=== PATIENT | male | born 1970 | race Caucasian/White ===

== ENCOUNTER 2024-01-28 07:36 | Day surgery (SDC) | payer OTHER ==
[~2024-01-28] VITALS: Ht 180.3 cm; Wt 93.0 kg
[2024-01-28] MEDS ORDERED: propofoL 50 ML IV ONE (07:37)
[2024-01-28] MEDS ORDERED: Lactated Ringer's 1,000 ML IV ONE ×2 (07:37→08:19)
[2024-01-28] MEDS ORDERED: SILD50TA (07:57)
== END 2024-01-28 09:35 | disposition home or self-care (01) ==
LOC: ORSCSDS 07:36
PROVIDERS: Surgery
PROC: 0DJD8ZZ Inspection of Lower Intestinal Tract, Via Natural or Artificial Opening Endoscopic (ICD-10-PCS; principal; 2024-01-28 08:45)
DX: Z12.11 Encounter for screening for malignant neoplasm of colon (principal); Z80.0 Family history of malignant neoplasm of digestive organs
CPT/HCPCS: J2704; J7120